=== PATIENT | female | born 1980 | race Caucasian/White ===

== ENCOUNTER 2017-01-07 18:12 | Emergency (ER) | payer BC ==
[2017-01-07 20:30] VITALS: BP 137/80
--- NOTE | 2017-01-07 20:47 | UC ---
Throat Pain/Nasal Ziggy HPI - HPI Summary HPI Summary: Feels crummy, PND, headache, congested for 1.5 weeks, 5/7 of her kids have been dx with strep recently. No fever or severe throat pain. - History of Current Complaint Chief Complaint: UCGeneralIllness Stated Complaint: ST Time Seen by Provider: 01/07/17 20:32 Hx Obtained From: Patient Hx Last Menstrual Period: has nuvaring ?: No Onset/Duration: Gradual Onset, Lasting Weeks Severity: Mild Cough: None Associated Signs & Symptoms: Positive: Nasal Discharge. Negative: Fever, Vomiting, Rash - Allergies/Home Medications Allergies/Adverse Reactions: Allergies Allergy/AdvReac Type Severity Reaction Status Date / Time Metformin Allergy Hives Verified 01/07/17 20:30 Home Medications: Home Medications Cetirizine* [ZyrTEC 10 MG TAB*] 10 mg PO DAILY 01/07/17 [History Confirmed 01/07] Fluticasone NASAL SPRAY 50MCG* [Flonase NASAL SPRAY 50MCG*] 2 spray BOTH NARES BID 01/07/17 [History Confirmed 01/07/17] PMH/Surg Hx/FS Hx/Imm Hx Respiratory History: Asthma - Surgical History Surgical History: Yes Surgery Procedure, Year, and Place: x1 - [facility]. - Family History Known Family History: Positive: Hypertension - Social History Lives: With Family Alcohol Use: None Substance Use Type: None Smoking Status (MU): Never Smoked Tobacco - Immunization History Most Recent Influenza Vaccination: NOT THIS SEASON Review of Systems Constitutional: Negative Skin: Negative Eyes: Negative ENT: Sore Throat, Nasal Discharge Respiratory: Negative Cardiovascular: Negative Gastrointestinal: Negative Genitourinary: Negative Motor: Negative Neurovascular: Negative Musculoskeletal: Negative Neurological: Headache Psychological: Negative Is Patient Immunocompromised?: No All Other Systems Reviewed And Are Negative: Yes Physical Exam Triage Information Reviewed: Yes Appearance: Well-Appearing, No Pain Distress, Obese Vital Signs: Initial Vital Signs Temp 98.1 F 01/07/17 20:25 Pulse 90 01/07/17 20:25 Resp 17 01/07/17 20:25 BP 137/80 01/07/17 20:25 Pulse Ox 98 01/07/17 20:25 Vital Signs Reviewed: Yes Eye Exam: Normal, Other - PERRL Eyes: Positive: Conjunctiva Clear ENT Exam: Normal ENT: Positive: Normal ENT inspection, Hearing grossly normal, Pharynx normal, TMs normal. Negative: Muffled voice, Hoarse voice Dental Exam: Normal Neck exam: Normal Neck: Positive: Supple, Nontender, No Lymphadenopathy Respiratory Exam: Normal Respiratory: Positive: Chest non-tender, Lungs clear, Normal breath sounds, No respiratory distress, No accessory muscle use Cardiovascular Exam: Normal Cardiovascular: Positive: RRR, No Murmur Musculoskeletal Exam: Normal Neurological Exam: Normal Neurological: Positive: Alert Psychological Exam: Normal Skin Exam: Normal Throat Pain/Nasal Course/Dx - Course Course Of Treatment: RST negative - Differential Dx/Diagnosis Provider Diagnoses: URI, likely viral Discharge - Discharge Plan Condition: Stable Disposition: HOME Patient Education Materials: Upper Respiratory Infection (ED) Referrals: Day Nunez MD [Primary Care Provider] - Additional Instructions: Rapid strep negative
== END 2017-01-07 21:14 | disposition home or self-care (01) ==
LOC: UCCORT 18:12
DX: J06.9 Acute upper respiratory infection, unspecified (principal); J45.909 Unspecified asthma, uncomplicated; E66.9 Obesity, unspecified
CPT/HCPCS: 87651; 99212; G0463

== ENCOUNTER 2017-11-06 16:36 | Emergency (ER) | payer BC ==
[2017-11-06 18:17] VITALS: BP 135/71
--- NOTE | 2017-11-06 18:51 | UC ---
Respiratory Complaint HPI - HPI Summary HPI Summary: patient with hx. of asthma, with cough, and no pleuritic pain, mild dyspnea hx of thrush recently treated probably secondary to inhaled steroids - History of Current Complaint Chief Complaint: UCRespiratory Stated Complaint: COUGH/ST Time Seen by Provider: 11/06/17 18:45 Hx Obtained From: Patient Hx Last Menstrual Period: NUVARING, DOES NOT HAVE REG PERIODS ?: No Onset/Duration: Gradual Onset, Lasting Weeks Timing: Constant Severity Initially: Moderate Severity Currently: Moderate Pain Intensity: 8 Aggravating Factors: Allergens Alleviating Factors: Bronchodilator Associated Signs And Symptoms: Positive: Sinus Discomfort - Risk Factors Pulmonary Embolism Risk Factors: Negative Cardiac Risk Factors: Negative Pseudomonas Risk Factors: Negative - Allergies/Home Medications Allergies/Adverse Reactions: Allergies Allergy/AdvReac Type Severity Reaction Status Date / Time metformin Allergy Unknown Hives Verified 11/06/17 18:11 Home Medications: Home Medications Budesonide/Formote 160/4.5(NF) [Symbicort 160/4.5 (NF)] 2 puff INH BID 11/06/17 [History Confirmed 11/06/17] D-Methorphan/PE/Acetaminophen [Tylenol Cold Max Day Caplet] 1 each PO PRN [History] Levalbuterol HFA INHALER* [Xopenex Hfa Inhaler*] 2 puff INH QID PRN 11/06/17 [ History Confirmed 11/06/17] Nystatin SUSPENSION ORAL SYR* 100,000 units PO QID 11/06/17 [History Confirmed 11/06/17] PMH/Surg Hx/FS Hx/Imm Hx Previously Healthy: Yes Respiratory History: Asthma - morbid obesity - Surgical History Surgical History: Yes Surgery Procedure, Year, and Place: x1 - [facility]. - Family History Known Family History: Positive: Hypertension - Social History Alcohol Use: None Substance Use Type: None Smoking Status (MU): Never Smoked Tobacco - Immunization History Most Recent Influenza Vaccination: NOT THIS SEASON Review of Systems Constitutional: Negative Skin: Negative Eyes: Negative ENT: Negative Respiratory: Other - asthma, cough Cardiovascular: Negative Gastrointestinal: Negative Genitourinary: Negative Motor: Negative Neurovascular: Negative Musculoskeletal: Negative Neurological: Negative Psychological: Negative Is Patient Immunocompromised?: No All Other Systems Reviewed And Are Negative: Yes Physical Exam Triage Information Reviewed: Yes Appearance: Well-Appearing Vital Signs: Initial Vital Signs Temp 36.6 C 11/06/17 18:13 Pulse 100 11/06/17 18:13 Resp 18 11/06/17 18:13 BP 135/71 11/06/17 18:13 Pulse Ox 100 11/06/17 18:13 Vital Signs Reviewed: Yes Eye Exam: Normal Eyes: Positive: Conjunctiva Clear ENT Exam: Normal ENT: Positive: Normal ENT inspection Dental Exam: Normal Neck exam: Normal Neck: Positive: Supple Respiratory Exam: Normal Respiratory: Positive: Chest non-tender, Lungs clear, Normal breath sounds, No respiratory distress Cardiovascular Exam: Normal Cardiovascular: Positive: RRR Abdominal Exam: Normal Abdomen Description: Positive: Nontender Bowel Sounds: Positive: Present Musculoskeletal Exam: Normal Neurological Exam: Normal Neurological: Positive: Alert UC Diagnostic Evaluation - Laboratory O2 Sat by Pulse Oximetry: 100 Respiratory Course/Dx - Differential Dx/Diagnosis Provider Diagnoses: exacerbation of asthma Discharge - Sign-Out/Discharge Documenting (check all that apply): Patient Departure All imaging exams completed and their final reports reviewed: Yes - Discharge Plan Condition: Good Disposition: HOME Patient Education Materials: Asthma (DC) Referrals: Amos Stockton MD [Primary Care Provider] - - Billing Disposition and Condition Condition: GOOD Disposition: Home
== END 2017-11-06 19:34 | disposition home or self-care (01) ==
LOC: UCCORT 16:36
DX: J45.901 Unspecified asthma with (acute) exacerbation (principal); Z88.8 Allergy status to other drugs, medicaments and biological substances
CPT/HCPCS: 99212; G0463

== ENCOUNTER 2019-02-01 13:58 | Emergency (ER) | payer BC ==
--- OUTSIDE RECORDS SUMMARY | 2019-02-01 14:30 | XMS REPORT | Continuity of Care Document ---
:1980 External Reference #:[id number] Author Name Kalee Stockton, LIDA Address [address] [place] [address] Problems Active Problems Provider Date Gastroesophageal reflux disease Day Nunez MD Onset: 05/15/2011 Acute bronchitis Day Nunez MD Onset: 02/02/2012 Allergic asthma without status asthmaticus Day Nunez MD Onset: 2011 Social History Type Date Description Comments Sex Unknown Tobacco Use Start: Unknown Never Smoked Cigarettes ETOH Use Denies alcohol use Allergies, Adverse Reactions, Alerts Active Allergies Reaction Severity Comments Date metformin Hives ALL Over 02/27/2008 Progesterone Hives 02/27/2008 Medications Active Medications SIG Qnty Indications Ordering Provider Date Venlafaxine HCL 1 by mouth every 30tabs F32.2 Kalee Stockton, 01/29/2019 75mg day [employer] Tablets Alprazolam 1-2 by mouth 90tabs F41.9 Kalee Stockton, 03/24/2012 0.25mg three times a day [employer] Tablets as needed anxiety Ranitidine HCL take one tablet 30tabs Kalee Stockton, 05/31/2011 150mg by mouth every [employer] Tablets day Nuvaring 1 intravag. mo Day Nunez, 05/15/2011 0.12-0.015mg/24HR Ring Xopenex HFA 2 Puffs Q4H as 1units 466.0 Amos Stockton, 11/24/2010 45mcg/Act Needed MD Aerosol Advair HFA 2 puff bid 1units Day Nunez, 02/27/2008 115/21 MD Aerosol History Medications Venlafaxine HCL 1 by mouth 30tabs F32.2 Kalee Stockton, 01/15/2019 - 37.5mg every day [employer] 01/29/2019 Tablets Immunizations CPT Code Status Date Vaccine Lot # [id number] Given 01/15/2019 Influenza Vac, Quadrivalent, Split, 0.5mL Dosage, [id number] Im Use [id number] Given 12/12/2017 Pneumococcal 23 Immunization Adult Or [id number] Immunosuppressed Patient 11950 Given 12/12/2017 Tdap (Adacel) Ages 7 And Above Only [id number] 82947 Given 12/12/2017 Afluria Or Fluvirin Flu Vac Intramuscular [id number] 29305 Given 10/24/2015 Influenza Vac, Quadrivalent, Split, 0.5mL Dosage, [id number] Im Use Vital Signs Date Vital Result Comment 01/29/2019 3:54pm Body Temperature 97.9 F Weight 242.00 lb Heart Rate 79 /min BP Systolic 130 mmHg BP Diastolic 76 mmHg Respiratory Rate 14 /min Height 64 inches 5'4" O2 % BldC Oximetry 97 % BMI (Body Mass Index) 41.5 kg/m2 01/15/2019 3:42pm Body Temperature 97.3 F Weight 244.00 lb Heart Rate 98 /min BP Systolic 140 mmHg BP Diastolic 70 mmHg Respiratory Rate 16 /min Height 64.5 inches 5'4.50" O2 % BldC Oximetry 98 % BMI (Body Mass Index) 41.2 kg/m2 Results Description No Information Available Procedures Date Code Description Status 12/11/2017 [id number] Mammogram Completed 05/06/2014 [id number] Mammogram Completed 02/07/2011 [id number] Mammogram Completed Medical Devices Description No Information Available Encounters Type Date Location Provider Dx Diagnosis Office Visit 01/15/2019 Kalee Fontenot NP E66.01 Morbid (severe) 3:45p obesity due to excess calories F32.2 Major depressv disord, single epsd, sev w/o psych features Z23 Encounter for immunization Z68.41 Body mass index (BMI) 40.0-44.9, adult Z13.31 Encounter for screening for depression Assessments Date Code Description Provider 01/29/2019 E66.01 Morbid (severe) obesity due to excess calories Kalee Stockton NP 01/29/2019 F32.2 Major depressive disorder, single episode, Kalee Stockton NP severe without psychotic features 01/29/2019 F41.9 Anxiety disorder, unspecified Kalee Stockton, LIDA 01/29/2019 Z68.41 Body mass index (BMI) 40.0-44.9, adult Kalee Stockton NP 01/15/2019 E66.01 Morbid (severe) obesity due to excess calories Kalee Stockton, LIDA 01/15/2019 F32.2 Major depressive disorder, single episode, Kalee Stockton NP severe without psychotic features 01/15/2019 Z23 Encounter for immunization Kalee Stockton NP 01/15/2019 Z68.41 Body mass index (BMI) 40.0-44.9, adult Kalee Stockton NP 01/15/2019 Z13.31 Encounter for screening for depression Kalee Stockton NP Plan of Treatment 01/29/2019 - Kalee Stockton NPE66.01 Morbid (severe) obesity due to excess unkrhgcvD55.2 Major depressive disorder, single episode, severe without psychotic featuresNew Medication:Venlafaxine HCL 75 mg - 1 by mouth every dayComments:increase dose to 75 mgFollow up:2 vwgwhB92.9 Anxiety disorder, cdutcynbghqM97.41 Body mass index (BMI) 40.0-44.9, adult Functional Status Description No Information Available Mental Status Description No Information Available Referrals Description No Information Available
--- OUTSIDE RECORDS SUMMARY | 2019-02-01 14:30 | XMS REPORT | Continuity of Care Document ---
:1980 External Reference #:[id number] Author Name Kalee Stockton, LIDA Address [address] [place] [address] Problems Active Problems Provider Date Gastroesophageal reflux [...] by mouth every 30tabs F32.2 Kalee Stockton, 01/15/2019 37.5mg day [employer] Tablets Alprazolam 1-2 by mouth 90tabs F41.9 Kalee Stockton, 03/24/2012 0.25mg three times a day [employer] Tablets as needed anxiety Ranitidine HCL take one tablet 30tabs Kalee Stockton, 05/31/2011 150mg by mouth every [employer] Tablets day Nuvaring 1 intravag. mo Day Nunez, 05/15/2011 0.12-0.015mg/24HR Ring Xopenex HFA 2 Puffs Q4H as 1units 466.0 Amos Stockton, 11/24/2010 45mcg/Act Needed MD Aerosol Advair HFA 2 puff bid 1units Day Nunez, 02/27/2008 115/21 MD Aerosol Immunizations CPT Code Status Date Vaccine Lot # [id number] Given 01/15/2019 Influenza Vac, Quadrivalent, Split, 0.5mL Dosage, [id number] Im Use 67388 Given 12/12/2017 Pneumococcal 23 Immunization Adult Or [id number] Immunosuppressed Patient 84711 Given 12/12/2017 Tdap (Adacel) Ages 7 And Above Only [id number] 15541 Given 12/12/2017 Afluria Or Fluvirin Flu Vac Intramuscular [id number] 37917 Given 10/24/2015 Influenza Vac, Quadrivalent, Split, 0.5mL Dosage, [id number] Im Use Vital Signs Date Vital Result Comment 01/15/2019 3:42pm Body Temperature 97.3 F Weight 244.00 lb Heart Rate 98 /min BP Systolic 140 mmHg BP Diastolic 70 mmHg Respiratory Rate 16 /min Height 64.5 inches 5'4.50" O2 % BldC Oximetry 98 % BMI (Body Mass Index) 41.2 kg/m2 06/13/2018 11:59am Body Temperature 97.6 F Weight 243.00 lb Heart Rate 100 /min BP Systolic 138 mmHg BP Diastolic 78 mmHg Respiratory Rate 17 /min Height 65 inches 5'5" BMI (Body Mass Index) 40.4 kg/m2 Results Description No Information Available Procedures Date Code Description Status 12/11/2017 [id number] Mammogram Completed 05/06/2014 [id number] Mammogram Completed 02/07/2011 [id number] Mammogram Completed Medical Devices Description No Information Available Encounters Description No Information Available Assessments Date Code Description Provider 01/15/2019 E66.01 Morbid (severe) obesity due to excess calories Kalee Stockton NP 01/15/2019 F32.2 Major depressive disorder, single episode, Kalee Stockton NP severe without psychotic features 01/15/2019 Z68.41 Body mass index (BMI) 40.0-44.9, adult Kalee Stockton NP Plan of Treatment Future Appointment(s):01/29/2019 3:45 pm - Kalee Stockton NP at [email or web address] - Kalee Stockton NPE66.01 Morbid (severe) obesity due to excess yydvushiU49.2 Major depressive disorder, single episode, severe without psychotic featuresNew Medication:Venlafaxine HCL 37.5 mg - 1 by mouth every dayFollow up:2 gqtceJ55.41 Body mass index (BMI) 40.0-44.9, adult Functional Status Description No Information Available Mental Status Description No Information Available Referrals Description No Information Available
[2019-02-01 14:44] VITALS: BP 146/83
--- NOTE | 2019-02-01 15:00 | UC ---
Throat Pain/Nasal Ziggy HPI - HPI Summary HPI Summary: 38 y/o female presents to the urgent care c/o Cold symptoms for the past 2 weeks. Pt report nasal congestion, w/ yellowish nasal discharge, moderate PND which triggers and intermittent cough that is worse at night time. She has been managing w/ OTC medications and using her inhaler w/o any improvement. Her daughter started w/ similar symptoms about 3 weeks ago. Pt has Hx of Asthma and she developed mild wheezing yesterday and gets better w/ her inhaler. She has now sinus pain and pressure w/ a FLEMING. Pain is 5/10. Pt denies fever, SOB, chest pain, dizziness, abdominal pain, N/V/d. - History of Current Complaint Chief Complaint: UCGeneralIllness Stated Complaint: COUGH,CONGESTION Time Seen by Provider: 02/01/19 14:49 Hx Obtained From: Patient Hx Last Menstrual Period: nuvaring ?: No Onset/Duration: Gradual Onset, Lasting Weeks - 2 weeks, Still Present, Worse Since - 1 week Severity: Moderate Pain Intensity: 7 Pain Scale Used: 0-10 Numeric Cough: Sputum Appears - green Associated Signs & Symptoms: Positive: Wheezing - mild at times, Sinus Discomfort, Nasal Discharge - gree. Negative: Dysphagia, Hoarseness, Fever - Epiglottits Risk Factors Epiglottis Risk Factors: Negative - Allergies/Home Medications Allergies/Adverse Reactions: Allergies Allergy/AdvReac Type Severity Reaction Status Date / Time metformin Allergy Unknown Hives Verified 02/01/19 14:38 Home Medications: Home Medications Etonogest/Eth.estradiol (Nf) [Nuvaring Vaginal Ring] 1 each VAGINAL .SEE COMMENTS 02/01/19 [History Confirmed 02/01/19] Venlafaxine EXT RELEASE CAP* [Effexor Xr CAP*] 75 mg PO DAILY 02/01/19 [History Confirmed 02/01/19] PMH/Surg Hx/FS Hx/Imm Hx Previously Healthy: Yes Respiratory History: Asthma Psychological History: Anxiety, Depression - Surgical History Surgical History: Yes Surgery Procedure, Year, and Place: x1 - [facility]. - Family History Known Family History: Positive: Hypertension Family History: breast cancer and prostate cancer - Social History Occupation: Employed Full-time Lives: With Family Alcohol Use: None Substance Use Type: None Smoking Status (MU): Never Smoked Tobacco - Immunization History Most Recent Influenza Vaccination: NOT THIS SEASON Review of Systems All Other Systems Reviewed And Are Negative: Yes Constitutional: Positive: Negative Skin: Positive: Negative Eyes: Positive: Negative ENT: Positive: Nasal Discharge - yellowish, Sinus Congestion, Sinus Pain/ Tenderness, Other - moderate PND Respiratory: Positive: Cough - dry, Other - mild wheezing yesterday Cardiovascular: Positive: Negative Gastrointestinal: Positive: Negative Genitourinary: Positive: Negative Motor: Positive: Negative Neurovascular: Positive: Negative Musculoskeletal: Positive: Negative Neurological: Positive: Negative Psychological: Positive: Negative Is Patient Immunocompromised?: No Physical Exam - Summary Physical Exam Summary: Vitals: reviewed General: Well developed, well-nourished obese female patient with NAD. Head and face: Normocephalic and atraumatic, Positive tenderness over the frontal and maxillary sinuses.. Eyes: PERRLA, EOMI x 2. Normal conjunctiva. No eye discharge. ENT: Ears and TM with normal limits. Nose: edematous and erythematous nasal mucosa with with yellowish discharge and erythematous mucosa. Pharynx with erythema, no exudate. green PND, tongue and posterior upper palate w/ white plaques due to oral candidiasis Neck: Supple, no JVD, no carotid bruits and no lymphadenopathy. Lungs: clear, no rales, no rhonchi, mild wheezing in the posterior upper lung. CVS: RRR, S1 and S2 present no murmurs or gallops appreciated. Abdomen: soft nontender with positive bowel sounds. Extremities: no edema noted. Neuro: WNL. Skin: warm and dry Triage Information Reviewed: Yes Vital Signs: Initial Vital Signs Temp 97.8 F 02/01/19 14:38 Pulse 86 02/01/19 14:38 Resp 16 02/01/19 14:38 BP 146/83 02/01/19 14:38 Pulse Ox 100 02/01/19 14:38 Throat Pain/Nasal Course/Dx - Course Course Of Treatment: 38 y/o female presents to the urgent care c/o Cold symptoms for the past 2 weeks. Pt report nasal congestion, w/ yellowish nasal discharge, moderate PND which triggers and intermittent cough that is worse at night time. She has been managing w/ OTC medications and using her inhaler w/o any improvement. Her daughter started w/ similar symptoms about 3 weeks ago. Pt has Hx of Asthma and she developed mild wheezing yesterday and gets better w/ her inhaler. She has now sinus pain and pressure w/ a FLEMING. Pain is 5/10. Pt denies fever, SOB, chest pain, dizziness, abdominal pain, N/V/d. Hx obtained. Pt with 2 weeks of symptoms getting worse. Pt w/ sinusitis and oral thrush on examination. Pt give an albuterol Tx by the nurse to alleviate mild wheezing. Pt tolerated well medication and wheezing cleared. Pt Rx Amoxicillin PO and Nystatin PO as directed below. Pt also ask for R for Dyflucan PO since everytime she takes antibiotic she develops a yeast infection. Pt also Rx Fluconazole. Pt advised to use flonase nasal spray she has at home to clear sinuses. Advised to clean her inhaler aerochamber well. Pt's BP is elevated today advised to decrease salt in diet, monitor BP and f/u with PCP for further management. Discharge instructions explained to Pt. Advised to Return to the clinic or PCP if symptoms do not improve.Pt understood and agreed with plan of care. - Differential Dx/Diagnosis Differential Diagnosis/HQI/PQRI: Influenza, Laryngitis, Mononucleosis, Pharyngitis, Sinusitis, Tonsillitis, URI, Other - bronchitis, pneumonia Provider Diagnosis: Acute bacterial sinusitis, Oral thrush, Elevated BP without diagnosis of hypertension Discharge ED - Sign-Out/Discharge Documenting (check all that apply): Patient Departure - D/C home All imaging exams completed and their final reports reviewed: No Studies - Discharge Plan Condition: Stable Disposition: HOME Prescriptions: Amoxicillin PO (*) [Amoxicillin 400 MG/5 ML SUSP*] 11 ml PO BID #220 bottle Fluconazole 150 MG TAB* [Diflucan 150 MG TAB*] 150 mg PO ONCE #2 tablet Nystatin SUSPENSION ORAL SYR* 100,000 units PO QID #1 [facility] [place] Patient Education Materials: Sinusitis (ED), Oral Candidiasis (ED) Referrals: Amos Stockton MD [Primary Care Provider] - 3 Days Additional Instructions: 1- Please increase fluid intake and rest. take full course of antibiotics to avoid resistance. Take yogurts w/ probiotics or Culturelle to protect your GI system 2-Use Flonase Nasl spray you have at home as directed to help drain fluid. Also buy saline drops to clear sinuses 3-Take Nystqatin oral susp as directed to alleviate oral thrush. Use the Fluconazole PO as directed for possible vaginal candidiasis due to antibiotic treatment. 4- Continue using your albuterol inhaler to alleviate mild wheezing. 5-Please f/u w/ your PCP in 3 days if symptoms do not improve for further management and treatment 6-Your BP is elevated today advised to decrease salt in diet, monitor BP and f/ u with PCP for further management. - Billing Disposition and Condition Condition: STABLE Disposition: Home - Attestation Statements Provider Attestation: I was available for consult. This patient was seen by the [facility]. The patient was not presented to , seen by or examined by me -Indira Martinez MD
== END 2019-02-01 15:49 | disposition home or self-care (01) ==
LOC: UCCORT 13:58
DX: J01.90 Acute sinusitis, unspecified (principal); B96.89 Other specified bacterial agents as the cause of diseases classified elsewhere; B37.0 Candidal stomatitis; R03.0 Elevated blood-pressure reading, without diagnosis of hypertension; R05 Cough; F32.9 Major depressive disorder, single episode, unspecified; F41.9 Anxiety disorder, unspecified; J45.909 Unspecified asthma, uncomplicated; Z79.899 Other long term (current) drug therapy; Z88.8 Allergy status to other drugs, medicaments and biological substances
CPT/HCPCS: 99212; G0463